=== PATIENT | female | born 1945 | race Caucasian/White ===

== ENCOUNTER → 2017-04-20 | Outpatient (CLI) | payer MEDICARE | END | disposition home or self-care (01) | LOC: CFH 14:25 | PROVIDERS: ATTEND Family Medicine | DX: Z12.31 Encounter for screening mammogram for malignant neoplasm of breast (principal); N80.9 Endometriosis, unspecified | CPT/HCPCS: 77063; G0202 ==

== ENCOUNTER → 2017-06-07 | Outpatient (CLI) | payer MEDICARE | LOC: CFH 13:07 | PROVIDERS: ATTEND Family Medicine | DX: Z02.9 Encounter for administrative examinations, unspecified (principal) ==

== ENCOUNTER 2018-05-11 12:13 | Outpatient (CLI) | payer MEDICARE | END 2018-05-11 23:59 | disposition home or self-care (01) | LOC: CFH 12:13 | PROVIDERS: ATTEND Family Medicine | DX: Z12.31 Encounter for screening mammogram for malignant neoplasm of breast (principal) | CPT/HCPCS: 77063; 77067 ==

== ENCOUNTER → 2019-05-17 | Outpatient (CLI) | payer MEDICARE | END | disposition home or self-care (01) | LOC: CFH 12:14 | PROVIDERS: ATTEND Family Medicine | DX: Z12.31 Encounter for screening mammogram for malignant neoplasm of breast (principal) | CPT/HCPCS: 77063; 77067 ==

== ENCOUNTER 2019-07-14 09:18 | Emergency (ER) | payer MEDICARE ==
[~2019-07-14] VITALS: Ht 157.5 cm; Wt 80.0 kg
[2019-07-14] MEDS ORDERED: SODIUM CHLORIDE 0.9% 1,000ML IVBOLUS ONE (09:30)
[2019-07-14] MEDS ORDERED: SODIUM CHLORIDE FLUSH 10ML SYR IVF ONE (09:30)
[2019-07-14] MEDS ORDERED: MECLIZINE CHEWABLE 25 MG TAB PO ONE (09:30)
[2019-07-14] MEDS ORDERED: MECLIZINE CHEWABLE 25 MG TAB ONE (09:34)
--- NOTE | 2019-07-14 09:45 | NUR ---
PT BIB EMS FOR DIZZYNESS, VERTIGO STARTING THIS AM. PT STATES ROOM WAS [facility]. PT VSS, NOT IN RESP DISTRESS. CMM OPERATOR APPLIED. DENIES CP OR SOB. NO COUGH OR FEVER. NO RECENT TRAVEL
[2019-07-14] MEDS ORDERED: ONDANSETRON ODT 4 MG PO ONE (10:00)
[2019-07-14] MEDS ORDERED: ONDANSETRON ODT 4 MG ONE (10:09)
[2019-07-14 10:16] LABS: BASOPHILS # (AUTO) 0.09 x10^3/uL (0-0.1); BASOPHILS % (AUTO) 1 % (0-1); EOSINOPHILS # (AUTO) 0.01 x10^3/uL (0-0.4); EOSINOPHILS % (AUTO) 0 % (1-7); LYMPHOCYTES # (AUTO) 1.92 x10^3/uL (1-3.4); LYMPHOCYTES % (AUTO) 26 % (22-44); MD NO; MEAN CORPUSCULAR HEMOGLOBIN 30.6 pg (27.0-34.8); MEAN CORPUSCULAR VOLUME 92.6 fL (80-100); MEAN PLATELET VOLUME 7.4 fL (7.4-10.4); MONOCYTES # (AUTO) 0.59 x10^3/uL (0.2-0.8); MONOCYTES % (AUTO) 8 % (2-9); NEUTROPHILS # (AUTO) 4.69 x10^3/uL (1.8-6.8); NEUTROPHILS % (AUTO) 64 % (42-75); PLATELET COUNT 427 x10^3/uL (130-400); RED BLOOD COUNT 4.82 x10^6/uL (3.82-5.3); RED CELL DISTRIBUTION WIDTH 13.6 % (9.6-15.2)
[2019-07-14 10:25] LABS: ALANINE AMINOTRANSFERASE 29 U/L (12-78); ALBUMIN 3.6 g/dL (3.4-5.0); ANION GAP 8 mmol/L (5-15); CALCIUM 8.8 mg/dL (8.5-10.1); CHLORIDE 107 mmol/L (98-107); CREATININE 1.02 mg/dL (0.55-1.02)
[2019-07-14] MEDS ORDERED: PLEASE ENTER HEIGHT AND WEIGHT MC SCH (10:30)
[2019-07-14 10:36] LABS: ALKALINE PHOSPHATASE 40 U/L (45-117); BILIRUBIN,TOTAL 0.5 mg/dL (0.2-1.0); TOTAL PROTEIN 7.4 g/dL (6.4-8.2)
[2019-07-14 10:59] VITALS: BP 144/77
--- NOTE | 2019-07-14 11:01 | NUR ---
GAVE PT WATER. PT STATES SHE IS FEELING BETTER. DENIES DIZZINESS
--- NOTE | 2019-07-14 11:59 | NUR ---
Patient/Caregiver given discharge instructions and they have confirmed that they understand the instructions. Patient ambulatory with steady gait.
== END 2019-07-14 12:10 | disposition home or self-care (01) ==
LOC: ED 11:54
DX: R42 Dizziness and giddiness (principal); R11.2 Nausea with vomiting, unspecified; R51 Headache; I10 Essential (primary) hypertension
CPT/HCPCS: 36415; 70450; 80053; 84443; 85025; 93005; 96360; 96361; 99285; J7030; Q0162

== ENCOUNTER → 2020-05-19 | Outpatient (CLI) | payer MEDICARE | END | disposition home or self-care (01) | LOC: CFH 10:49 | PROVIDERS: ATTEND Family Medicine | DX: Z12.31 Encounter for screening mammogram for malignant neoplasm of breast (principal) | CPT/HCPCS: 77063; 77067 ==

== ENCOUNTER → 2020-08-29 | Outpatient (CLI) | payer MEDICARE | END | disposition home or self-care (01) | LOC: CFH 09:18 | PROVIDERS: ATTEND Family Medicine | DX: C50.312 Malignant neoplasm of lower-inner quadrant of left female breast (principal) | CPT/HCPCS: 76642; 77061; 77065; G0279 ==